=== PATIENT | female | born 1965 | race Caucasian/White ===

== ENCOUNTER 2019-07-31 17:36 | Emergency (ER) | payer BC, SELFPAY ==
--- NOTE | ~2019-07-31 | XR_ITS ---
EXAMINATION: XR knee LT min 4V DATE: 07/31/2019 18:02 INDICATION: Left knee pain TECHNIQUE: Five views of the left knee were obtained. COMPARISON: None. FINDINGS: Alignment is normal. No fracture or osteochondral lesion. Joint spaces are normal with no e rosions. There is a small knee joint effusion. There is anterior infrapatellar soft tissue swelling. IMPRESSION: 1. Soft tissue swelling and small knee joint effusion without acute osseous abnormality. Reviewed, dictated and finalized at location A. IMPRESSION: 1. Soft tissue swelling and small knee joint effusion without acute osseous abn ormality.
[2019-07-31 18:04] VITALS: BP 143/88; PULSE 88; RESP 18; TEMP 37.1; O2SAT 99
--- NOTE | 2019-07-31 18:10 | ED.LOWEXIN ---
HPI - Extremity Injury (Lower) General Chief Complaint: Extremity Injury, Lower Stated Complaint: Left knee pain Time Seen by Provider: 07/31/19 17:52 Source: patient and RN notes reviewed Mode of arrival: ambulatory Limitations: no limitations History of Present Illness HPI Narrative: Patient presents today complaining of left knee pain. She tripped and fell in her garage at 1330 this afternoon. Denies numbness or tingling in the leg or foot. Reports pain is only present with touching and movement of the knee, which she rates 5/10. She took some Tylenol and applied some ice at home with mild relief. She has been ambulatory since the injury. MD complaint: knee injury Related Data Home Medications Medication Instructions Recorded Confirmed citalopram 40 mg DAILY 07/31/19 07/31/19 levothyroxine 75 mcg DAILY 07/31/19 07/31/19 Allergies Allergy/AdvReac Type Severity Reaction Status Date / Time codeine AdvReac Unknown Verified 01/01/17 06:51 CODEINE PHOSPHATE (Generic AdvReac Intermediate NV Uncoded 11/02/16 08:57 Allergy) Review of Systems Review of Systems: Narrative: CONSTITUTIONAL: Denies body aches, fever, chills, or sweats. EYES: Denies visual changes, redness, or discharge. ENT: Denies rhinorrhea, congestion, sore throat, or otalgia. CARDIOVASCULAR: Denies chest pain, palpitations, or edema. RESPIRATORY: Denies cough or dyspnea. GASTROINTESTINAL: Denies abdominal pain, nausea, vomiting, or diarrhea. GENITOURINARY: Denies dysuria or hematuria. SKIN: Denies rash, itching, or wounds. MUSCULOSKELETAL: Denies back pain, or myalgia.+ Left knee injury NEUROLOGIC: Denies headache, numbness, tingling, or weakness. PSYCH: Denies depression or anxiety. PMFSH Social History Social History Gender identity (if verbalized by the patient): Female Comments At time of signature, I have reviewed and agree with nursing past medical, surgical, social and family history unless otherwise noted. Please see nursing chart for further information. There is no relevant family history pertinent to the presenting complaint Exam Narrative: Exam Narrative: GENERAL: Well-appearing, well-nourished, and in no acute distress. HEAD: Normocephalic, atraumatic. EYES: EOMI. No redness or drainage. Conjunctivae normal. ENT: Mucous membranes pink and moist. NECK: Normal AROM. CHEST: No respiratory distress. EXTREMITIES: Left knee: Normal range of motion with increased pain. 1 x 2 cm bruise to the lower patella with mild surrounding edema. Tenderness to the patella area. No crepitus noted. Distal sensation intact. Capillary refill normal. Posterior tibial pulse normal. SKIN: Warm, dry, no rash. NEURO: No focal deficits. Alert and oriented x3. Gait steady. PSYCH: Normal affect. No signs of depression or anxiety. Course Vital Signs Vital signs: Vital Signs Temperature 98.8 F 07/31/19 18:04 Pulse Rate 88 07/31/19 18:04 Respiratory Rate 18 07/31/19 18:04 Blood Pressure 143/88 H 07/31/19 18:04 Pulse Oximetry 99 07/31/19 18:04 Temperature 98.8 F 07/31/19 18:04 Pulse Rate 88 07/31/19 18:04 Respiratory Rate 18 07/31/19 18:04 Blood Pressure 143/88 H 07/31/19 18:04 Pulse Oximetry 99 07/31/19 18:04 Reviewed. Pt has been instructed to follow up with her PCP regarding her elevated blood pressure today. MDM - Extremity Injury (Lower) Differential Diagnosis Differential diagnosis: Likely other (Knee sprain, patellar fracture, ligamental injury, contusion) Imaging Data Radiologist's impression: ITS Impressions Knee X-Ray 07/31/19 18:17 IMPRESSION: 1. Soft tissue swelling and small knee joint effusion without acute osseous abnormality. Critical Care Time Critical Care Time Critical Care Time: No Discharge Plan Discharge Clinical Impression: Effusion of left knee Contusion of knee, left Qualifiers: Encounter type: initial encounter Qualified Code(s): S80.02XA
== END 2019-07-31 18:31 | disposition home or self-care (01) ==
PROVIDERS: Emergency Provider Nurse Practitioner; PCP Family Medicine
DX: M25.462 Effusion, left knee (principal); S80.02XA Contusion of left knee, initial encounter; W01.0XXA Fall on same level from slipping, tripping and stumbling without subsequent striking against object, initial encounter; E03.9 Hypothyroidism, unspecified; F32.9 Major depressive disorder, single episode, unspecified
CPT/HCPCS: 73564; 99213; G0463

== ENCOUNTER 2019-09-10 07:23 | Outpatient (CLI) | payer BC, SELFPAY ==
--- NOTE | ~2019-09-10 | MM_ITS ---
EXAMINATION: MM screening [facility] BI w mily HISTORY: Screening mammogram TECHNIQUE: Craniocaudal and mediolateral oblique 3-D tomosynthesis images were obtained and synthetic 2-D images were generated. CAD analysis was submitted and interpreted. COMPARISON: Comparison to multiple prior studies sequentially, with oldest reviewed study dated 05/30/2013. BREAST PARENCHYMAL COMPOSITION: There are scattered areas of fibroglandular density. FINDINGS: There is no evidence of suspicious mass, calcification, or architectural distortion to sugg est malignancy in either breast. There has been no suspicious interval change. IMPRESSION: 1. No mammographic evidence of malignancy. 2. Recommend routine screening mammography in one year. BI-RADS Category 1: Negative Reviewed, dictated and finalized at location A.
== END 2019-09-10 07:24 | disposition home or self-care (01) ==
LOC: ANHIMG 07:29
PROVIDERS: PCP Family Medicine; Visit Provider Obstetrics & Gynecology
DX: Z12.31 Encounter for screening mammogram for malignant neoplasm of breast (principal)
CPT/HCPCS: 77063; 77067

== ENCOUNTER 2020-09-12 07:58 | Outpatient (CLI) | payer BC, SELFPAY ==
--- NOTE | ~2020-09-12 | MM_ITS ---
EXAMINATION: MM screening [facility] BI w mily HISTORY: Screening TECHNIQUE: Craniocaudal and mediolateral oblique 3-D tomosynthesis images were obtained and synthetic 2-D images were generated. CAD analysis was submitted and interpreted. COMPARISON: Comparison to multiple prior studies sequentially, with oldest reviewed study dated 06/13. BREAST PARENCHYMAL COMPOSITION: The breasts are heterogenously dense, which may obscure small masses. FINDINGS: There is a developing focal asymmetry in the upper inner quadrant of the right breast, midd le third. There is a second asymmetry superiorly in the right breast on MLO view only. The left breas t is stable without evidence for malignancy. IMPRESSION: 1. Developing right breast asymmetries. 2. Additional mammographic views and possible breast ultrasound are recommended. BI-RADS Category 0: Incomplete: Needs additional imaging evaluation. Reviewed, dictated and finalized at location A. IMPRESSION: 1. Developing right breast asymmetries. 2. Additional mammographic views and possible breast ultrasound are recommended . BI-RADS Category 0: Incomplete: Needs additional imaging evaluation.
== END 2020-09-12 07:59 | disposition home or self-care (01) ==
LOC: ANHIMG 08:01
PROVIDERS: PCP Family Medicine; Visit Provider Obstetrics & Gynecology
DX: Z12.31 Encounter for screening mammogram for malignant neoplasm of breast (principal); R92.8 Other abnormal and inconclusive findings on diagnostic imaging of breast
CPT/HCPCS: 77063; 77067

== ENCOUNTER 2020-10-02 11:50 | Outpatient (CLI) | payer BC, SELFPAY ==
--- NOTE | ~2020-10-02 | MMUS_ITS ---
EXAMINATION: MM diagnostic mammo unilat RT, US breast RT complete HISTORY: Follow-up right breast asymmetry TECHNIQUE: Additional 3-D tomosynthesis images of the right breast were performed and synthetic 2-D i mages were generated. CAD analysis was submitted and interpreted. High resolution Limited right breas t ultrasound was performed. COMPARISON: Comparison to multiple prior studies sequentially, with oldest reviewed study dated 07/23. BREAST PARENCHYMAL COMPOSITION: The breasts are heterogenously dense, which may obscure small masses FINDINGS: MAMMOGRAPHIC FINDINGS: There are no suspicious masses, calcifications or architectural distortion in the right breast to sug gest malignancy. ULTRASOUND: Complete right breast ultrasound: Normal heterogeneous echotexture without focal solid or cystic mass . IMPRESSION: 1. No evidence for malignancy in the right breast. 2. Routine yearly screening mammogram and regular clinical breast examination are recommended. BI-RADS Category 2: Benign finding(s). Reviewed, dictated and finalized at location A. IMPRESSION: 1. No evidence for malignancy in the right breast. 2. Routine yearly screening mammogram and regular clinical breast examination a re recommended. BI-RADS Category 2: Benign finding(s).
== END 2020-10-02 11:51 | disposition home or self-care (01) ==
LOC: ANHIMG 11:51
PROVIDERS: PCP Family Medicine; Visit Provider Obstetrics & Gynecology
DX: R92.8 Other abnormal and inconclusive findings on diagnostic imaging of breast (principal)
CPT/HCPCS: 76641; 77065

== ENCOUNTER 2021-10-23 08:30 | Outpatient (CLI) | payer BC, SELFPAY ==
--- NOTE | ~2021-10-23 | MM_ITS ---
EXAMINATION: MM screening [facility] BI w mily HISTORY: Screening TECHNIQUE: Craniocaudal and mediolateral oblique 3-D tomosynthesis images were obtained and synthetic 2-D images were generated. CAD analysis was submitted and interpreted. COMPARISON: Comparison to multiple prior studies sequentially, with oldest reviewed study dated 07/30. BREAST PARENCHYMAL COMPOSITION: There are scattered areas of fibroglandular density. FINDINGS: There is no evidence of suspicious mass, calcification, or architectural distortion to sugg est malignancy in either breast. There has been no suspicious interval change. IMPRESSION: 1. No mammographic evidence of malignancy. 2. Recommend routine screening mammography in one year. BI-RADS Category 1: Negative Reviewed, dictated and finalized at location A.
== END 2021-10-23 08:31 | disposition home or self-care (01) ==
PROVIDERS: PCP Family Medicine; Visit Provider Obstetrics & Gynecology
DX: Z12.31 Encounter for screening mammogram for malignant neoplasm of breast (principal)
CPT/HCPCS: 77063; 77067

== ENCOUNTER → 2022-02-02 13:08 | Outpatient (CLI) | payer BC, SELFPAY ==
--- NOTE | ~2022-02-02 | CT_ITS ---
EXAMINATION: CT abdomen pelvis wo con DATE: 02/02/2022 13:22 INDICATION: Right lower quadrant pain TECHNIQUE: Computed tomography (CT) of the abdomen and pelvis was performed without intravenous contr ast. The dose-length product (DLP) was 1047.08 mGy-cm. Automated exposure control and iterative recon struction technique were employed. COMPARISON: 01/13/2012 FINDINGS: The lung bases are clear. The heart size is normal. Cysts of the liver measure up to 7 mm i n the right hepatic lobe. The spleen, pancreas, gallbladder, and adrenal glands are normal. The kidne ys are unremarkable. No pathologically enlarged abdominal or pelvic lymph nodes are identified. There is no free intraperitoneal gas or evidence of bowel obstruction. The appendix is normal. There are t iny periumbilical hernias containing fat. There is mild lumbar spondylosis. IMPRESSION: 1. No CT correlate for the patient's symptoms. Reviewed, dictated and finalized at location A.
== END ==
PROVIDERS: PCP Family Medicine; Visit Provider Family Medicine
DX: R10.31 Right lower quadrant pain (principal); K76.89 Other specified diseases of liver; M47.816 Spondylosis without myelopathy or radiculopathy, lumbar region; K42.9 Umbilical hernia without obstruction or gangrene
CPT/HCPCS: 74176

== ENCOUNTER 2022-10-16 08:47 | Emergency (ER) | payer BC, SELFPAY ==
--- NOTE | 2022-10-16 08:53 | ED.GENADULT ---
HPI - General Adult General Chief complaint: Upper Respiratory Infection Stated complaint: Cough,Sore Throat Time Seen by Provider: 10/16/22 08:53 Source: patient Mode of arrival: ambulatory Limitations: no limitations History of Present Illness HPI narrative: 56-year-old female patient presents to the [facility] with complaints of cold symptoms the past 4-5 days. Patient states she has had body aches, nausea, runny nose, congestion a slight cough, headache sore throat slight shortness of breath. Patient states she was running a fever today of 101. Patient states she did test herself on Monday night for COVID and was negative. Patient states she has been taking [id number] Tylenol, DayQuil and NyQuil. Related Data Home Medications Medication Instructions Recorded Confirmed citalopram 40 mg tablet 40 mg DAILY 07/31/19 10/16/22 levothyroxine 75 mcg tablet 75 mcg DAILY 07/31/19 10/16/22 multivitamin (Daily Multi-Vitamin 1 tablet PO DAILY 07/01/22 10/16/22 tablet) Allergies Allergy/AdvReac Type Severity Reaction Status Date / Time codeine AdvReac Intermediate Nausea and Verified 10/16/22 08:50 Vomiting CODEINE PHOSPHATE (Generic AdvReac Intermediate NV Uncoded 10/16/22 08:50 Allergy) Review of Systems Review of Systems: CONSTITUTIONAL: Positive fever, body aches and chills, denies sweats. EYES: Denies visual changes, redness, or discharge. ENT: positive rhinorrhea, congestion, sore throat, denies otalgia. CARDIOVASCULAR: Denies chest pain, palpitations, or edema. RESPIRATORY: positive cough denies dyspnea. GASTROINTESTINAL: Denies abdominal pain, nausea, vomiting, or diarrhea. GENITOURINARY: Denies dysuria or hematuria. SKIN: Denies rash or itching. MUSCULOSKELETAL: Denies back pain, joint pain, or myalgia. NEUROLOGIC: positive headache, denies numbness, or weakness. PSYCHIATRIC: Denies anxiety or depression. [facility] Past Medical History Medical History Anxiety Depression Hypothyroidism Vitamin D deficiency Surgical History Surgical History History of colposcopy with cervical biopsy (08/15/18) LGSIL +HPV History of dilation and curettage 2006 hscope d&c/polypectomy 06/18/15 hscope d&c/polypectomy--benign History of umbilical hernia repair 2001 2003 S/P skin biopsy 2004 rt wrist--benign 12/13/12 lt knee--benign Family History Family History Father Malignant neoplasm of prostate Mother Hypertension Aortic aneurysm Other Family history of lung cancer Family history of malignant neoplasm of bone Family history of malignant neoplasm of urinary bladder Social History Social History Smoking status: Never smoker Alcohol intake: current Drinks per week: 4 Substance use: never Substance use type: does not use Lack of Transportation: No Lack of Food: Never True Current Housing: I Have Housing Concerned About Future Housing: No Difficulty Paying Gas/Electric Bills: No Difficulty Paying for Meds: No Currently Unemployed: No Difficulty w/ Childcare or Family Care: No Living arrangements: with family Additional living arrangements comments: Occupation/Education: occupation 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 There is no relevant family history pertinent to the presenting complaint. Exam Narrative: GENERAL: Well-appearing, well-nourished, and in no acute distress. HEAD: Normocephalic, atraumatic. EYES:
[2022-10-16 08:56] VITALS: BP 117/60; PULSE 104; RESP 18; TEMP 37; O2SAT 97
== END 2022-10-16 09:38 | disposition home or self-care (01) ==
PROVIDERS: Emergency Provider Nurse Practitioner Family; PCP Physician Assistant
DX: J06.9 Acute upper respiratory infection, unspecified (principal); R05.9 Cough, unspecified; E03.9 Hypothyroidism, unspecified; Z20.822 Contact with and (suspected) exposure to COVID-19
CPT/HCPCS: 87081; 87426; 87804; 87880; 99213; C9803; G0463

== ENCOUNTER 2022-11-18 07:12 | Outpatient (CLI) | payer BC, SELFPAY ==
--- NOTE | ~2022-11-18 | MM_ITS ---
EXAMINATION: MM screening [facility] BI w mily HISTORY: Screening mammogram TECHNIQUE: Craniocaudal and mediolateral oblique 3-D tomosynthesis images were obtained and synthetic 2-D images were generated. CAD analysis was submitted and interpreted. COMPARISON: 10/23/2021, 10/02/2020, 09/12/2020, 09/10/2019 BREAST PARENCHYMAL COMPOSITION: There are scattered areas of fibroglandular density. FINDINGS: No suspicious mass, calcification, or architectural distortion are identified in either ignacio ast to suggest malignancy. There has been no suspicious interval change. IMPRESSION: 1. No mammographic evidence of malignancy. 2. Recommend routine screening mammography in one year. BI-RADS Category 1: Negative Reviewed, dictated and finalized at location A.
== END 2022-11-18 07:13 | disposition home or self-care (01) ==
LOC: ANHIMG 07:14
PROVIDERS: PCP Physician Assistant; Visit Provider Obstetrics & Gynecology
DX: Z12.31 Encounter for screening mammogram for malignant neoplasm of breast (principal)
CPT/HCPCS: 77063; 77067

== ENCOUNTER 2023-11-21 09:24 | Outpatient (CLI) | payer BC, SELFPAY ==
--- NOTE | ~2023-11-21 | MM_ITS ---
EXAMINATION: MM screening [facility] BI w mily HISTORY: Screening TECHNIQUE: Craniocaudal and mediolateral oblique 3-D tomosynthesis images were obtained and synthetic 2-D images were generated. CAD analysis was submitted and interpreted. COMPARISON: Comparison to multiple prior studies sequentially, with oldest reviewed study dated 09/2018. BREAST PARENCHYMAL COMPOSITION: Not dense: There are scattered areas of fibroglandular density. FINDINGS: There is no evidence of suspicious mass, calcification, or architectural distortion to sugg est malignancy in either breast. There has been no suspicious interval change. IMPRESSION: 1. No mammographic evidence of malignancy. 2. Recommend routine screening mammography in one year. BI-RADS Category 1: Negative Reviewed, dictated and finalized at location B.
== END 2023-11-21 09:25 | disposition home or self-care (01) ==
LOC: ANHIMG 09:25
PROVIDERS: PCP Family Medicine; Visit Provider Obstetrics & Gynecology
DX: Z12.31 Encounter for screening mammogram for malignant neoplasm of breast (principal)
CPT/HCPCS: 77063; 77067

== ENCOUNTER 2024-08-06 12:21 | Outpatient (CLI) | payer BC, SELFPAY ==
--- NOTE | ~2024-08-06 | XR_ITS ---
EXAMINATION: XR chest 2V 08/06/2024 12:38 INDICATION: Wheezing and dyspnea PROCEDURE: 2 view chest COMPARISON: Comparison to multiple prior studies sequentially, with oldest reviewed study dated 11/2012. FINDINGS: The lungs are clear. The cardiomediastinal silhouette is within normal limits. There are no pleural effusions. There is no pneumothorax suspected. IMPRESSION: 1: NO ACUTE CARDIOPULMONARY DISEASE. Reviewed, dictated and finalized at location A.
--- OUTSIDE RECORDS SUMMARY | 2024-08-06 14:21 | XMS_ITS | Clinical Summary ---
Author Organization [facility] Address [address] [place] [id number] Care Team Providers Care Medical Record Administrator Name Role Phone Suni Gaxiola Primary Care Provider [phone] Allergies Active Allergy Reactions Criticality Noted Date Comments Codeine Nausea only Low 07/27/2021 Other Unknown 01/08/2013 Medications ALPRAZolam (XANAX) 0.5 mg tablet 0 11/11/19 18 Active citalopram (CeleXA) 40 mg tablet Active ibuprofen-diphen hydramine cit 200-38 mg tablet Act jewel multivit with min-folic acid (ADULT MULTIVITAMIN GUMMIES) 200 mcg tablet,chewable Acti ve omega-3s/dha/epa /fish oil/D3 (VITAMIN-D + OMEGA-3 ORAL) Active levothyroxine (SYNTHROID) 75 mcg tablet levothyroxine 75 mcg tablet Active valACYclovir (VALTREX) 1 gram tablet valacyclovir 1 gram tablet Active levoFLOXacin (LEVAQUIN) 500 mg tablet levofloxacin 500 mg tablet Active Active Problems Problem Noted Date Diagnosed Date Melanocytic nevus of trunk 01/06/2015 Surgical follow-up care 01/22/2013 Skin neoplasm 12/25/2012 Malignant melanoma of upper extremity 12/30/2010 Immunizations Immunization Administration Dates Next Due Influenza, Quadrivalent, Split, Intramuscular ZOSTER Recombinant 05/23/2018,11/28/2017 Medical History Medical History Date Comments Encounter for removal of sutures Encounter for removal of sutures - (Added by TW Conv) Personal history of malignan t melanoma of skin History of malignant melanom a of skin - (Added by TW Conv) Melanoma (HCC) Social History Tobacco Use Types Packs/Day Years Used Date Smoking Tobacco: Never Smokeless Tobacco: Never Alcohol Use Standard Drinks/Week Comments Yes 0 (1 standard drink = 0.6 oz pur e alcohol) Comments Unknown Sex and Gender Information Value Date Recorded Sex Assigned at Not on file 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 Gender Identity Not on file Sexual Orientation Not on file Obstetrics History Plan of Treatment Health Maintenance Due Date Last Done Comments Breast Cancer Screening-Mammogram 1963 Cervical Cancer Screening 1963 Colon Cancer Screening-Colonoscopy 1965 Depression Screening 1965 Hepatitis C Screening 1965 DTaP/Tdap/Td Vaccine (1 - Tdap) 12/08/1974 Hepatitis B Screening 12/08/1981 Regular Well Visit/Exam 18-64 12/08/1981 Influenza Vaccine (#1) 2024 02/01/2019 Zoster Vaccine Completed 05/23/2018, 11/28/2017 Pneumococcal vaccine <65 Aged Out No longer eligible based on patient's age to complete this topic Insurance [employer] [place] Care Teams Medical Record Administrator Relationship Specialty Start Date End Date Suni Gaxiola PA [address] [place] [id number] PCP - General 04/03/17
--- OUTSIDE RECORDS SUMMARY | 2024-08-06 14:21 | XMS_ITS | Referral Summary ---
Author Organization [facility] Address [address] [place] [id number] Care Team Providers Care Front Desk Lead Name Role Phone Suni Gaxiola Primary Care Provider [phone] Allergies Active Allergy Reactions Criticality Noted Date [...] Influenza, Quadrivalent, Split, Intramuscular ZOSTER Recombinant 05/23/2018,11/28/2017 Social History Tobacco Use Types Packs/Day Years Used Date Smoking Tobacco: Never Smokeless Tobacco: Never Alcohol Use Standard Drinks/Week Comments Yes 0 (1 standard drink = 0.6 oz pur e alcohol) Comments Unknown Sex and Gender Information Value Date Recorded Sex Assigned at Not on file 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
--- OUTSIDE RECORDS SUMMARY | 2024-08-06 14:21 | XMS_ITS | Data Portability ---
Author Organization [place] [facility] [employer], Main Office Address [address] [place] [address] Care Team Providers Care Python Architect Name Role Phone ANGELA ROCHA Primary Care Provider ANGELA ROCHA Referring Provider Assessment Encounter Date Assessment Date Assessment LastModified by Organization Details LastModified Time 10/30/2023 10/30/2023 The patient has significant chondromalacia patella bilateral knees with some mild swelling and pain in the right knee. We talked about treatment options today in detail her x-rays show early mild osteoarthritis medial and patellofemoral articulations on the right knee. At her request under sterile conditions I injected the patient's right knee joint in the office with 4 cc 0.5% Marcaine and 20 mg of Kenalog. Patient tolerated procedure well. We will do a course of oral prednisone followed by Celebrex 200 mg daily for a month I will see her back after that see how she is doing. We talked about getting a knee sleeve with the patellar guide brace I also offered her formal physical therapy however she declined for now. This is something we are going to have to manage we talked about this in detail today she voiced understanding and agrees with the above plan she will call for any further problems difficulties or questions. [email or web address] Not available 10/30/2023 10:07:35 Plan of Treatment Reminders Order Date Submit Date Provider Last Modified By Organization Details Last Modified Time Details Appointments None recorded. Lab None recorded. Referral None recorded. Procedures injection/a spiration joint/bursa (PROC) 2023 024 [email or web address] In-Office Order, Internal Use Only DO Not Attach Compendium DO Not Attach Compendium, Do Not Delete/merge, [id number] 10:05:13 Surgeries None recorded. Imaging XR, knee 2023 024 [email or web address] [facility], [address], [place], [address], 4 11:33:09 Medication Orders Marcaine (PF) 0.5 % (5 mg/mL) injection solution [address] [id number], [address] [facility] [place], [place], [place], [id number], 4 11:33:09 Kenalog 10 mg/mL suspension for injection [address] [id number], [address] [facility] [place], [place], [place], [id number], 4 11:33:09 prednisone 10 mg tablets in a dose pack [address] [facility][id number], [address] [facility] [place], [place], [place], [id number], 4 11:33:09 celecoxib 200 mg capsule [address] [facility][id number], [address] [facility] [place], [place], [place], [id number], 4 11:33:09 Patient TargetsNo targets recorded. Patient InstructionsNo instructions recorded. Reason for Referral None Reported. Results Created Date Observation Date Name Description Value Unit Range Abnormal Flag Note LastModifiedBy Organization Detail LastModifiedTime 10/30/19 24 XR, knee No observ ation record ed. [email or web address] [facility] [address], [place], [address], 10/30/2023 10:08:24 Result Notes None recorded. Problems Name Problem SNOMED Code Status Onset Date Resolution Date Notes Provider Name and Address Organization Details Recorded Time Pain of right knee joint 0739598652739 00 Active 2023 ADRIEN Baron [facility] [employer] [facility] 09:44:49 Osteoarthri tis of right knee joint 3524917677825 00 Active 2023 BREA Joshi [address] [facility], [place], [address], [employer] [facility] [employer] [facility] 10:08:44 Chondromala lisset of bilateral patellas 1939600695248 9100 Active 2023 BREA Joshi [address] [facility], [place], [address], [employer] [facility] [employer] [facility] 10:08:51 Problem Notes None recorded. Procedures Surgical History Date Name Laterality Status Provider Name and Address Organization Details Recorded Time repair of umbilical hernia completed Dianna Rhoades CNA [facility] [employer] [facility] 10/30/2023 09:43:45 Cancer Surgery completed Dianna emmanuel CNA [employer] [facility] [employer] [facility] 10/30/2023 09:44:02 Imaging Results Imaging Date Name Status LastModified by Organiz ation Details LastModified Time 10/30/2023 XR, knee completed [email or web address] [facility] [address], [place], [address], 10/30/2023 10:08:24 Procedure Notes None recorded. Medical Equipment None Reported. Allergies Allergen ID Allergen Name Allergen Category Reaction Reaction Severity Criticality Documentation Date Start Date Code Code System Note Provider Name and Address Organization Details Recorded Time 12909 codeine medicatio n nausea Not available Not available 10/30/2023 2670 RxNorm ADRIEN Baron [place] - [facility] [employer] [facility] 09:40:33 Medications Name Sig Start Date Stop Date Status Note LastModified by Organization Details LastModified Time celecoxib 200 mg capsule TAKE 1 CAPSULE BY MOUTH EVERY DAY active Not Available Not Available No t Available prednisone 10 mg tablet active Not Available Not Available Not Available citalopram 40 mg tablet TAKE 1 TABLET BY MOUTH DAILY active Not Available Not Available No t Available valacyclovi r 1 gram tablet TAKE 2 TABLETS BY MOUTH EVERY 12 HOURS PRN active Not Available Not Available No t Available levothyroxi ne 75 mcg tablet TAKE 1 TABLET BY MOUTH EVERY DAY active Not Available Not Available No t Available prednisone 10 mg tablets in a dose pack Take 1 tab by mouth, 3 times a day for 3 daysTake 1 tab by mouth 2 times a day for 2 daysTake 1 tab by mouth once a day for 1 day 2023 active Not Available Not Available Not Bryon [facility] Kenalog 10 mg/mL suspension for injection Take 20 mg by injection route. 2023 active [facility]: [phone] Not Available Not Available Not Available progesteron e micronized 200 mg capsule TAKE 1 CAPSULE BY MOUTH EVERY DAY AT BEDTIME active Not Available Not Available No t Available estradiol 0.5 mg tablet TAKE 1 TABLET BY MOUTH EVERY DAY active Not Available Not Available No t Available cefuroxime axetil 500 mg tablet TAKE 1 TABLET BY MOUTH EVERY 12 HOURS FOR 10 DAYS 10/29 completed Not Available Not Available Not Available Marcaine (PF) 0.5 % (5 mg/mL) injection solution Take 20 mg by injection route. 2023 active Not Available Not Available Not [facility] Paxlovid 300 mg (150 mg x 2)-100 mg tablets in a dose pack TAKE TWO 150MG TABLETS OF NIRMATREL VIR WITH ONE 100 MG TABLET OF RITONAVIR TWICE DAILY FOR 5 DAYS 10/29 completed Not Available Not Available Not Available Vitals Date Recorded Body height Body mass index (BMI) Body weight Provider Name and Address Organization Details Last Updated DateTime 10/30/2023 162.56 cm 34.3 kg/m2 14843.47 g Dianna Rhoades CNA [employer] 10/30/2023 09:39:45 Social History Question Answer Notes LastModified by Organizat ion Details LastModified Time Tobacco Smoking Status Never Smoker ADRIEN Baron [facility] [employer] [address] [employer] 10/30/2023 09:43:12 What Is Your Level Of Alcohol Consumption? Occasional [email or web address] Information not available 10/30/2023 Sex: Unknown Functional Status None recorded. Mental Status None recorded. Family History Relationship Description Onset Age of this Age Resolved Age Notes LastModified by Organization Details LastModified Time Mother Heart disease [email or web address] Not available 2023 09:42:28 Mother Hypertensive disorder [email or web address] Not available 2023 09:42:45 Mother Chronic obstructive pulmonary disease [email or web address] Not available 2023 09:42:58 Medical History Condition Response CANCER: SPECIFY Y Gynecological HistoryNo gynecological history recorded. Obstetrics History GPAL:G 0 P 0 0 0 0 Past Encounters Encounter ID Performer Location Encounter Start Date Encounter Closed Date Diagnosis/Indication Diagnosis SNOMED-CT Code Diagnosis ICD10 Code Diagnosis Note [id number] BREA Joshi [facility] [address] [place] [address] 10/30/2023 09:17:07 10/30/2023 10:13:55 Pain of right knee joint 6247233634 94710 M25.561 Chondromal acia of bilateral patellas 7039673801 3942978 M22.41 M22.42 Osteoarthr itis of right knee joint 1941075766 88717 M17.11 Health Concerns Section Related Observation LastModified by Organization Detai ls LastModified Time None Recorded Concern Status LastModified by Organization Details LastModified Time None Recorded Advance Directives Directive None Recorded Payers Encounter Date Sequence Insurance Name Policy Number Policy Stephen Covered Member ID Stephen Member ID Guarantor Name 10/30/2023 1 [place] [id number] Lazaro Marieway [id number] Radha Rutherford Notes Date Note Type Note Provider Name and Address Organization Details Recorded Time 10/30/2023 text/html the patient is a 57-year-old female who presents with a several month history right knee pain. She states most of the pain appears to be anteriorly she does report popping and crunching through the arc of motion in the patellofemoral articulation lately she has had some swelling. A couple of months ago she went to [place] and was doing some walking on vacation there nothing out of the ordinary denies any specific trauma or injury but since that time she started to note some more aching pain in the knee. She has similar crepitation in the opposite side but no pain or swelling. Denies any locking or catching no loss of motion. She does have pain with extremes of motion particularly with flexion if she stands or walks or tries to go up and down stairs for any amount of time this aggravates her knee pain as well. Despite conservative measures including very occasional ibuprofen her symptoms continue she comes in today for initial evaluation treatment states the pain is about a 4 on a scale 1-10. A new past medical history sheet was reviewed and signed on the intake sheet of today's date drug allergies current medications family social history previous surgical history 10 point review of systems was reviewed and discussed in detail today with the patient. BREA Joshi [address] [facility] [facility] [address], [place], [address], [place] [facility] [address] [employer] 10/30/2023 10:09:15 OBGyn Episode No OBEpisode recorded.
== END 2024-08-06 12:22 | disposition home or self-care (01) ==
LOC: ANHIMG 12:26
PROVIDERS: PCP Family Medicine
DX: R06.2 Wheezing (principal)
CPT/HCPCS: 71046

== ENCOUNTER 2024-11-26 09:36 | Outpatient (CLI) | payer BC, SELFPAY ==
--- NOTE | ~2024-11-26 | MM_ITS ---
EXAMINATION: MM screening [facility] BI w mily HISTORY: Screening TECHNIQUE: Craniocaudal and mediolateral oblique 3-D tomosynthesis images were obtained and synthetic 2-D images were generated. CAD analysis was submitted and interpreted. COMPARISON: Comparison to multiple prior studies sequentially, with oldest reviewed study dated 09/09. BREAST PARENCHYMAL COMPOSITION: Not dense: There are scattered areas of fibroglandular density. FINDINGS: There is no evidence of suspicious mass, calcification, or architectural distortion to sugg est malignancy in either breast. There has been no suspicious interval change. IMPRESSION: 1. No mammographic evidence of malignancy. 2. Recommend routine screening mammography in one year. BI-RADS Category 1: Negative Reviewed, dictated and finalized at location B.
--- OUTSIDE RECORDS SUMMARY | 2024-11-26 09:55 | XMS_ITS | Referral Summary ---
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
--- OUTSIDE RECORDS SUMMARY | 2024-11-26 09:55 | XMS_ITS | Clinical Summary ---
Author Organization [facility] Address [address] [place] [address] Care Team Providers Care Direct Support Professional Caregiver Name Role Phone Suni Gaxiola Primary Care Provider [phone] Allergies Active Allergy Reactions Criticality Noted Date [...] 12/25/2012 Malignant melanoma of upper extremity 12/30/2010 Encounters Date Type Department Care Team Description 09/30/2024 Telephone [facility] Dermatology [address] [place] [address] [address] [place] [address] Sandrita Heller from Last 3 Months Immunizations Immunization Administration Dates Next Due Influenza, Quadrivalent, Split, Intramuscular ZOSTER Recombinant 05/23/2018,11/28/2017 Medical History Medical History Date Comments Encounter for removal of sutures Encounter for removal of sutures - (Added by MIKE Conv) Personal history of malignan t melanoma of skin History of malignant melanom a of skin - (Added by MIKE Conv) Melanoma (HCC) Social History Tobacco Use Types Packs/Day Years Used Date Smoking Tobacco: Never Smokeless Tobacco: Never Alcohol Use Standard Drinks/Week Comments Yes 0 (1 standard drink = 0.6 oz pur e alcohol) Comments Unknown Sex and Gender Information Value Date Recorded Sex Assigned at Not on file 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 Gender Identity Not on file Sexual Orientation Not on file Obstetrics History Plan of Treatment Health Maintenance Due Date Last Done Comments Breast Cancer Screening-Mammogram 1963 Cervical Cancer Screening 1963 Colon Cancer Screening-Colonoscopy 1965 Depression Screening 1963 Hepatitis C Screening 1965 DTaP/Tdap/Td Vaccine (1 - Tdap) 12/08/1974 Hepatitis B Screening 12/08/1981 Regular Well Visit/Exam 18-64 12/08/1981 Influenza Vaccine (Season Ended) 2025 02/01/2019 Zoster Vaccine Completed 05/23/2018, 11/28/2017 Pneumococcal vaccine <65 Aged Out No longer eligible based on patient's age to complete this topic Insurance [employer] [place] Care Teams Direct Support Professional Caregiver Relationship Specialty Start Date End Date Suni Gaxiola PA [address] [place] [phone] PCP - General 04/03/17
== END 2024-11-26 09:37 | disposition home or self-care (01) ==
LOC: ANHIMG 09:37
PROVIDERS: PCP Family Medicine; Visit Provider Obstetrics & Gynecology
DX: Z12.31 Encounter for screening mammogram for malignant neoplasm of breast (principal)
CPT/HCPCS: 77063; 77067